=== PATIENT | male | born 1995 | race African-American/Black ===

== ENCOUNTER 2022-03-27 18:52 | Emergency (ER) | payer SELFPAY ==
--- NOTE | ~2022-03-27 | XR_ITS ---
EXAMINATION: XR CHEST CLINICAL INFORMATION: Syncope COMPARISON: None TECHNIQUE: 2 views of the chest were obtained. FINDINGS: The lungs are clear. No airspace consolidation, pleural effusion, or pneumothorax. The cardiomediastinal silhouette is within normal limits. No acute osseous injury. XR/XR chest 2V IMPRESSION: No acute pulmonary process.
--- NOTE | ~2022-03-27 | CT_ITS ---
EXAMINATION: CT HEAD WITHOUT CONTRAST CT FACIAL BONES WITHOUT CONTRAST CT CERVICAL SPINE WITHOUT CONTRAST CLINICAL INFORMATION: Fall. Hit head. Facial pain. COMPARISON: None available. TECHNIQUE: Imaging was performed from the skull base to vertex without intravenous administration of contrast. In addition, helical noncontrast CT imaging was acquired through the cervical spine and facial bones and source images were reviewed along with axial reconstructions and sagittal and coronal MPRs. This CT examination was performed using dose optimization techniques as appropriate, variously including the following: *Automated exposure control. *Adjustment of mA and/or kV according to patient size (this includes techniques or standardized protocols for targeted exams where dose is matched to indication/reason for exam; i.e. extremities or head). *Use of iterative reconstruction technique. DLP: 1629 mGy-cm FINDINGS: Head: There is no evidence of acute intracranial hemorrhage or edematous territorial infarction. There is no abnormal attenuation within the brain parenchyma. Espinzoa-white matter differentiation is preserved. The ventricles are normal in size and configuration. No evidence for obstructive hydrocephalus. No abnormal mass effect or midline shift. No extra-axial fluid collections. No acute soft tissue or osseous abnormalities. Mild leftward nasal septal deviation. The mastoid air cells and middle ear cavities remain well aerated. Maxillofacial Bones: No evidence of maxillofacial bone fractures. The zygomatic arches remain intact. No nasal bone fracture. The nasal septum remains midline. Mild soft tissue edema along the left malar region. No evidence of mandibular or maxillary fracture. The mandibular condyles remain well-seated in their respective temporal articular grooves. Normal appearance of the intraconal and extraconal fat. No evidence of traumatic injury to the extraocular musculature or globes. Mild mucosal thickening of the ethmoid air cells. Minimal mucosal thickening of the remaining paranasal sinuses. Moderate leftward nasal septal deviation. No layering fluid collections. Cervical Spine: The atlantooccipital and atlantoaxial articulations remain well aligned. Mild reversal the normal cervical lordosis centered on C5. Otherwise, there is anatomic alignment of the vertebral bodies and posterior elements. No evidence of acute fracture or subluxation. The vertebral body heights and disc spaces are maintained. There is no prevertebral soft tissue swelling. The thyroid gland and remaining cervical soft tissues are normal in appearance. The lung apices demonstrate no abnormalities. CT/CT cervical spine wo con IMPRESSION: 1. No evidence of acute intracranial hemorrhage or edematous territorial infarction. 2. Mild subcutaneous edema/hematoma along the left side of the face. No associated acute osseous abnormalities. 3. No evidence of acute fracture or traumatic subluxation of the cervical spine.
[2022-03-27 19:02] VITALS: BP 106/80; PULSE 86; O2SAT 98
[2022-03-27 19:07] VITALS: BP 118/67; PULSE 79; RESP 18; TEMP 36.9; O2SAT 98; BMI 24.2
[2022-03-27 19:12] VITALS: BP 115/65; PULSE 77
--- NOTE | 2022-03-27 19:12 | ECG_ITS ---
Test Reason : FALL Blood Pressure : / mmHG Vent. Rate : 091 BPM Atrial Rate : 091 BPM P-R Int : 134 ms QRS Dur : 086 ms QT Int : 322 ms P-R-T Axes : 072 086 054 degrees QTc Int : 396 ms Normal sinus rhythm Normal ECG No previous ECGs available Referred By: Milly Devi Electronically Signed By:HALIE SOARES MD
--- NOTE | 2022-03-27 19:19 | ED.FALL ---
HPI - Fall General Chief Complaint: Fall Stated Complaint: fall Time Seen by Provider: 03/27/22 19:11 Source: EMS Mode of arrival: EMS Limitations: no limitations History of Present Illness HPI Narrative: 27-year-old male who is healthy presents after a fall which occurred while waiting in line outside. Patient tells me he was waiting in line to get ice cream she started to feel very lightheaded and dizzy. The next thing he remembered he woke up on the ground. He denies any incontinence of urine or stool. No tongue bite. His fall was witnessed by several bystanders who were concerned the patient may and had some generalized shaking activity. Patient denies any seizure history. On arrival alert and oriented. No headache, neck pain, vision changes, vomiting, chest pain or abdominal pain. He does have several abrasions to the face. Last tetanus status unknown. He denies a pre fall symptoms of associated chest pain, palpitations, headache. He tells me he had half who water bottle today and a grilled cheese. No other water or food intake. He has had several beers today. no additional substance use Related Data Allergies Allergy/AdvReac Type Severity Reaction Status Date / Time No Known Allergies Allergy Verified 03/27/22 19:02 Review of Systems Review of Systems: Yes all other systems are reviewed and are negative Constitutional: Constitutional: Reports no additional constitutional complaints, Denies body ache(s), Denies chills, Denies fever(s), Denies headache(s) and Denies weakness Eyes: Eyes: Reports no additional eye complaints and Denies change in vision ENT: Reports system reviewed and no additional complaints, except as documented, Reports dizziness, Denies headache(s), Denies nasal congestion, Denies nasal discharge and Denies neck pain Cardiovascular: Cardiovascular: Reports no additional cardiovascular complaints, Denies chest pain, Denies leg edema and Denies dyspnea Respiratory: Respiratory: Reports no additional respiratory complaints, Denies cough and Denies dyspnea Gastrointestinal: Gastrointestinal: Reports no additional gastrointestinal complaints, Denies abdominal pain, Denies diarrhea, Denies nausea and Denies vomiting Genitourinary: Genitourinary: Denies urinary incontinence Musculoskeletal: Musculoskeletal: Reports no additional musculoskeletal complaints, Denies back pain, Denies arthralgias, Denies joint swelling, Denies neck pain, Denies numbness and Denies tingling Integumentary/Breasts: Skin/Breast: Reports system reviewed and no additional complaints, except as docu and Denies rash Comments: Abrasions Neurologic: Reports system reviewed and no additional complaints, except as documented, Denies Abnormal speech present, Reports dizziness, Denies headache(s), Denies numbness, Denies tingling and Denies weakness PMFSH Past Medical History Attestation statement: The following information was validated with the patient. Source: old records reviewed and nursing notes reviewed Social History Social History Alcohol intake: current Alcohol intake frequency: a few times a week Alcohol type: beer Patient Tobacco Use Status: Never used Tobacco Use of substances other than those prescribed or required for medical reasons: Yes Substance Use Type: Marijuana Substance Use Frequency: Occasionally Last Used Substance: Hours (ago) Advance Directives: No Advance Directives Information Provided: Yes Physical Exam Vital Signs: Vital Signs: Last Vital Signs Temp 98.4 F 03/27/22 19:07 Pulse 85 03/27/22 19:23 Resp 18 03/27/22 19:07 BP 125/68 03/27/22 19:23 Pulse Ox 98 03/27/22 19:07 O2 Del Method 03/27/22 19:07 BMI result Body Mass Index 24.2 Const: General: cooperative, healthy appearing, comfortable and no acute distress Orientation/consciousness: patient oriented x3 Limitations: no limitations HEENT: Head: Yes normal to inspection, No Osuna's sign and No raccoon eyes Head images: 1. 1 cm laceration 2. 1cm laceration Ears: hearing grossly normal bilaterally and TM's normal bilaterally General nose exam: Normal external nose present Face and sinus: Yes normal facial exam Mouth: Normal oral and palatal mucosa present Throat: Yes posterior oropharynx normal, Yes tonsils normal and Yes uvula midline Eyes: General: appearance normal, both eyes and all related structures Pupils: Equal, round and reactive pupils present Neck: Other: No cervical midline tenderness, step-offs or deformities Neck: Yes normal visual inspection, Yes full ROM, Yes no lymphadenopathy and Yes no meningeal signs Chest: Chest palpation & inspection: normal inspection of the chest Resp: Effort & Inspection: normal respiratory effort Auscultation: clear to auscultation bilaterally Cardio: Rate: regular rate Rhythm: regular rhythm Peripheral pulses: Peripheral pulses 2+ throughout GI: Inspection: Yes normal to inspection Palpation (GI): Soft to palpation and nontender Auscultation: normal bowel sounds Back/Spine/Pelvis: Thoracic/Lumbar Spine: thoracic and lumbar spine normal to inspection Skin: General skin exam: no rashes or lesions noted Neuro: General: patient oriented x3, moves all extremities, no meningeal signs, no focal motor deficits and normal sensation to monofilament Cranial nerves: Yes CN's II-XII intact bilaterally, Yes Equal, round and reactive pupils present, Yes Bilaterally intact EOM present, Yes Nystagmus not present and Yes Midline tongue present Cognition (Neuro): normal cognition Speech: No Abnormal speech present Motor exam (neuro): 5/5 motor strength present throughout Sensory Exam: Normal double simultaneous stimulation for sensation Coordination: [id number] test normal Extrem: General: Yes normal to inspection Elbow/forearm/wrist images: 1. Abrasion Course Course Course Narrative: Images show no acute finding. Labs show mild elevated BUN and creatinine but no previous for comparison. Also mildly elevated CPK. This is likely from dehydration. Patient also has a mild leukocytosis. No signs of infection. Likely from dehydration. Patient received 1 L of IV fluid. See procedure note for wound repair. He has been at his baseline. Alert and oriented. Family here for discharge home. Likely syncopal episode from dehydration. Low concern for seizure with no postictal period and normal lactic acid Procedures Laceration Laceration 1: Site: other (eyebrow) Side (If applicable): left Size (cm): 1 Description: linear Depth: simple, single layer Local Anesthetic: lidocaine 1% Amount of anesthesia used (mL): 1 Pre-repair: wound explored and irrigated extensively Skin layer closed with: other (prolene) Size (cm): 6-0 Number of sutures: 3 Technique: simple, interrupted Laceration 2: Site: other (cheek) Side (If applicable): left Size (cm): 1 Description: linear Depth: simple, single layer Local Anesthetic: lidocaine 1% Amount of anesthesia used (mL): 1 Pre-repair: wound explored and irrigated extensively Skin layer closed with: other (prolene) Size (cm): 6-0 Number of sutures: 3 MDM - Fall MDM Narrative Medical decision making narrative: 27-year-old male who presents to the emergency room after having a fall just prior to arrival. Patient had preceding symptoms of lightheadedness and dizziness then no memory further event. Per bystanders patient may have had some generalized shaking. No clear seizure history. On arrival alert oriented x3. Normal neuro exam. No complaints. Consider syncope, seizure Will obtain labs, orthostatics, EKG, CT head, neck and facial bones Patient will need tetanus updated Medical Records Attestation: I reviewed the patient's medical records. Lab Data Attestation: I reviewed the patient's lab results. Result diagrams: 03/27/22 20:18 03/27/22 20:18 Labs: Lab Results 03/27/22 03/27/22 03/27/22 Range/Units 19:19 20:18 20:18 WBC 16.3 H (4.8-10.8) X10*3/uL RBC 4.98 (4.60-5.80) X10*6/uL Hgb 15.4 (14.0-18.0) g/dl Hct 44.8 (42.0-52.0) % MCV 90.0 (80.0-98.0) fL MCH 30.9 (27.0-33.0) pg MCHC 34.4 (31.0-36.0) g/dl RDW 12.2 (11.0-16.0) % Plt Count 226 (160-400) X10*3/uL MPV 9.9 (9.4-12.4) fL Immature Gran % (Auto) 0.7 H (0.0-0.4) % Neut % (Auto) 87.8 H (45-73) % Lymph % (Auto) 5.1 L (20-40) % Gonzales % (Auto) 6.0 (2-11) % Eos % (Auto) 0.1 (0-4) % Baso % (Auto) 0.3 (0-2) % Lymph # (Auto) 0.8 L (1.2-4.9) X10*3/uL Gonzales # (Auto) 1.0 (0.1-1.2) X10*3/uL Eos # (Auto) 0.0 (0.0-0.4) X10*3/uL Baso # (Auto) 0.1 (0.0-0.2) X10*3/uL Abs Immat Gran (auto) 0.11 H (0.00-0.03) X10*3/uL Absolute Neuts (auto) 14.3 H (2.0-8.3) x10*3/uL Absolute Nucleated RBC 0.000 (0.0-0.012) X10*3/uL Nucleated RBC % (auto) 0.0 (0.0-0.2) /100WBC Sodium 141 (135-145) mmol/L Potassium 4.1 (3.3-5.1) mmol/L Chloride 106 (96-108) mmol/L Carbon Dioxide 26 (22-29) mmol/L Anion Gap 13 (12-20) BUN 17 H (9-16) mg/dL Creatinine 1.43 H (0.5-1.4) mg/dL Estim Creat Clear Calc 70.6 Estimated GFR 60 POC Glucose 138 H (60-115) mg/dL Random Glucose 84 (60-115) mg/dL Lactic Acid (0.5-2.0) mmol/L Calcium 9.9 (8.4-10.2) mg/dL Magnesium 2.0 (1.6-2.6) mg/dL Total Bilirubin 0.6 (0.0-1.0) mg/dL Direct Bilirubin 0.3 (0.0-0.5) mg/dL AST 26 (5-37) U/L ALT 25 (0-40) U/L Alkaline Phosphatase 63 (39-117) U/L Total Creatine Kinase 694 H (38-174) U/L Troponin I High Sens (<3.5-35.0) ng/L Total Protein 7.5 (6.5-8.0) g/dL Albumin 4.8 (3.5-5.0) g/dL COVID-19 (DEVANTE) (Negative) COVID-19 Clin Com 03/27/22 03/27/22 03/27/22 Range/Units 20:18 20:18 20:39 WBC (4.8-10.8) X10*3/uL RBC (4.60-5.80) X10*6/uL Hgb (14.0-18.0) g/dl Hct (42.0-52.0) % MCV (80.0-98.0) fL MCH (27.0-33.0) pg MCHC (31.0-36.0) g/dl RDW (11.0-16.0) % Plt Count (160-400) X10*3/uL MPV (9.4-12.4) fL Immature Gran % (Auto) (0.0-0.4) % Neut % (Auto) (45-73) % Lymph % (Auto) (20-40) % Gonzales % (Auto) (2-11) % Eos % (Auto) (0-4) % Baso % (Auto) (0-2) % Lymph # (Auto) (1.2-4.9) X10*3/uL Gonzales # (Auto) (0.1-1.2) X10*3/uL Eos # (Auto) (0.0-0.4) X10*3/uL Baso # (Auto) (0.0-0.2) X10*3/uL Abs Immat Gran (auto) (0.00-0.03) X10*3/uL Absolute Neuts (auto) (2.0-8.3) x10*3/uL Absolute Nucleated RBC (0.0-0.012) X10*3/uL Nucleated RBC % (auto) (0.0-0.2) /100WBC Sodium (135-145) mmol/L Potassium (3.3-5.1) mmol/L Chloride (96-108) mmol/L Carbon Dioxide (22-29) mmol/L Anion Gap (12-20) BUN (9-16) mg/dL Creatinine (0.5-1.4) mg/dL Estim Creat Clear Calc Estimated GFR POC Glucose (60-115) mg/dL Random Glucose (60-115) mg/dL Lactic Acid 1.7 (0.5-2.0) mmol/L Calcium (8.4-10.2) mg/dL Magnesium (1.6-2.6) mg/dL Total Bilirubin (0.0-1.0) mg/dL Direct Bilirubin (0.0-0.5) mg/dL AST (5-37) U/L ALT (0-40) U/L Alkaline Phosphatase (39-117) U/L Total Creatine Kinase (38-174) U/L Troponin I High Sens 3.5 (<3.5-35.0) ng/L Total Protein (6.5-8.0) g/dL Albumin (3.5-5.0) g/dL COVID-19 (DEVANTE) Negative (Negative) COVID-19 Clin Com See Note Imaging Data Chest x-ray: Attestation: I personally reviewed and interpreted this imaging study as follows: Radiologist's impression: [address] [address] XRay Report Signed Patient: Diamond Urbano MR#: [id number] : 1995 Acct:[id number] Age/Sex: 27 / M ADM Date: 03/27/22 Loc: .ED Attending Dr: Ordering Physician: Milly Devi NP Date of Service: 03/27/22 Procedure(s): XR chest 2V Accession Number(s): [id number] cc: Milly Devi NP~ EXAMINATION: XR CHEST CLINICAL INFORMATION: Syncope COMPARISON: None TECHNIQUE: 2 views of the chest were obtained. FINDINGS: The lungs are clear. No airspace consolidation, pleural effusion, or pneumothorax. The cardiomediastinal silhouette is within normal limits. No acute osseous injury. XR/XR chest 2V IMPRESSION: No acute pulmonary process. ct head/cervical spine/facial bones: Attestation: I personally reviewed and interpreted this imaging study as follows: Radiologist's impression: FINDINGS: Head: There is no evidence of acute intracranial hemorrhage or edematous territorial infarction. There is no abnormal attenuation within the brain parenchyma. Espinoza-white matter differentiation is preserved. The ventricles are normal in size and configuration. No evidence for obstructive hydrocephalus. No abnormal mass effect or midline shift. No extra-axial fluid collections. No acute soft tissue or osseous abnormalities. Mild leftward nasal septal deviation. The mastoid air cells and middle ear cavities remain well aerated. Maxillofacial Bones: No evidence of maxillofacial bone fractures. The zygomatic arches remain intact. No nasal bone fracture. The nasal septum remains midline. Mild soft tissue edema along the left malar region. No evidence of mandibular or maxillary fracture. The mandibular condyles remain well-seated in their respective temporal articular grooves. Normal appearance of the intraconal and extraconal fat. No evidence of traumatic injury to the extraocular musculature or globes. Mild mucosal thickening of the ethmoid air cells. Minimal mucosal thickening of the remaining paranasal sinuses. Moderate leftward nasal septal deviation. No layering fluid collections. Cervical Spine: The atlantooccipital and atlantoaxial articulations remain well aligned. Mild reversal the normal cervical lordosis centered on C5. Otherwise, there is anatomic alignment of the vertebral bodies and posterior elements. No evidence of acute fracture or subluxation. The vertebral body heights and disc spaces are maintained. There is no prevertebral soft tissue swelling. The thyroid gland and remaining cervical soft tissues are normal in appearance. The lung apices demonstrate no abnormalities. CT/CT cervical spine wo con IMPRESSION: 1. No evidence of acute intracranial hemorrhage or edematous territorial infarction. 2. Mild subcutaneous edema/hematoma along the left side of the face. No associated acute osseous abnormalities. 3. No evidence of acute fracture or traumatic subluxation of the cervical spine. ECG Data Attestation: I personally reviewed and interpreted this ECG as follows: ECG interpretation date: 03/27/22 ECG interpretation time: 20:35 Interpretation: Normal sinus rhythm with rate 91, normal ND, normal QRS, normal QT Discharge Plan Discharge Clinical Impression: Syncope, Facial laceration, Acute dehydration Instructions: Dehydration (ED), Laceration (ED), Syncope (ED) Additional Instructions: Your laceration required sutures. These need to be removed in 5 days. Wash them gently with soap and water daily. No scrubbing You were dehydrated. Increase fluids at home. Change positions slowly. Follow-up with your primary care doctor to have your labs repeated including your kidney function Referrals: Physician,Unknown J [Primary Care Provider] - Interventions: ED Discharge Assessment Last Done: 03/27/22 21:56
[2022-03-27 19:21] VITALS: BP 122/78; PULSE 75
[2022-03-27 19:23] VITALS: BP 125/68; PULSE 85
[2022-03-27 19:29] LABS: Glucose, Whole Blood 138 mg/dL (60-115)
[2022-03-27 20:24] LABS: MANUAL DIFF FLAG NO
[2022-03-27 20:26] LABS: Basophils Absolute Auto 0.1 X10*3/uL (0.0-0.2); Basophils Percent Auto 0.3 % (0-2); Eosinophils Percent Auto 0.1 % (0-4); Hematocrit 44.8 % (42.0-52.0); Hemoglobin 15.4 g/dl (14.0-18.0); Imm Gran Abs Auto 0.11 X10*3/uL (0.00-0.03); Imm Gran Pct Auto 0.7 % (0.0-0.4); Lymphocytes Absolute Auto 0.8 X10*3/uL (1.2-4.9); Lymphocytes Percent Auto 5.1 % (20-40); Mean Corpuscular HGB Conc 34.4 g/dl (31.0-36.0); Mean Corpuscular Hemoglobin 30.9 pg (27.0-33.0); Mean Platelet Volume 9.9 fL (9.4-12.4); Neutrophils Absolute Auto 14.3 x10*3/uL (2.0-8.3); Neutrophils Percent Auto 87.8 % (45-73); Platelet Count 226 X10*3/uL (160-400); Red Blood Count 4.98 X10*6/uL (4.60-5.80); Red Cell Distribution Width 12.2 % (11.0-16.0); White Blood Count 16.3 X10*3/uL (4.8-10.8)
[2022-03-27 20:55] LABS: Lactic Acid 1.7 mmol/L (0.5-2.0)
[2022-03-27 20:57] LABS: Alanine Aminotransferase 25 U/L (0-40); Albumin Level 4.8 g/dL (3.5-5.0); Alkaline Phosphatase 63 U/L (39-117); Anion Gap 13 (12-20); Aspartate Amino Transferase 26 U/L (5-37); Bilirubin Direct 0.3 mg/dL (0.0-0.5); Bilirubin Total 0.6 mg/dL (0.0-1.0); Blood Urea Nitrogen 17 mg/dL (9-16); Calcium 9.9 mg/dL (8.4-10.2); Carbon Dioxide 26 mmol/L (22-29); Chloride 106 mmol/L (96-108); Creatinine Clr Calc Pharmacy 70.6; Estimated Glomerular Filt Rate 60; Glucose Random 84 mg/dL (60-115); Potassium 4.1 mmol/L (3.3-5.1); Sodium 141 mmol/L (135-145); Total Protein 7.5 g/dL (6.5-8.0)
[2022-03-27 21:02] LABS: COVID-19 Test Negative (Negative); IDNOW Serial# 55D5AD1C
[2022-03-27 21:05] LABS: Troponin-I High Sensitivity 3.5 ng/L (<3.5-35.0)
[2022-03-27] MEDS: 0.9 % Sodium Chloride 1,000 ML 999 ML IV (21:15)
[2022-03-27] MEDS: Lidocaine HCl 1 % MPF 5 ML VIAL SUBCUT (22:47)
[2022-03-27] MEDS: Diphth,Pertus(ACell),Tet Adult 0.5 ML SYRINGE IM (22:47)
== END 2022-03-27 22:59 | disposition still patient (30) ==
PROVIDERS: Nurse Practitioner Family; Emergency Provider Emergency Medicine
DX: S01.112A Laceration without foreign body of left eyelid and periocular area, initial encounter (principal); S01.412A Laceration without foreign body of left cheek and temporomandibular area, initial encounter; S10.91XA Abrasion of unspecified part of neck, initial encounter; R42 Dizziness and giddiness; M54.2 Cervicalgia; R51.9 Headache, unspecified; W01.10XA Fall on same level from slipping, tripping and stumbling with subsequent striking against unspecified object, initial encounter; Y93.9 Activity, unspecified; Y92.9 Unspecified place or not applicable; Y99.9 Unspecified external cause status; Z20.822 Contact with and (suspected) exposure to COVID-19; Z79.899 Other long term (current) drug therapy
CPT/HCPCS: 12011; 36415; 70450; 70486; 71046; 72125; 80048; 80076; 82550; 82947; 83605; 83735; 84484; 85025; 87635; 90471; 90715; 93005; 96360; 99284